=== PATIENT | female | born 1950 | race Hispanic/Latino ===

== ENCOUNTER 2017-03-07 12:05 | Inpatient (IN) | payer MEDICARE, OTHER ==
[2017-03-07 12:05] VITALS: BMI 31.7
--- NOTE | 2017-03-07 12:22 | ED PDOC ---
Arrival/HPI - General Chief Complaint: Shortness Of Breath Time Seen by Provider: 03/07/17 12:05 Historian: Patient - History of Present Illness Narrative History of Present Illness (Text): 03/07/17 12:20 Shruti Lee, a 67 year old female, whose past medical history includes hypertension, CHF, CAD, COPD and diabetes, presents to the emergency department complaining of worsening shortness of breath for the past few days. Patient also reports a dry cough that worsens when lying down or with exertion. Patient denies any fever, nausea, vomiting or any other complaints at this time. Time/Duration: < week Symptom Onset: Sudden Symptom Course: Unchanged Activities at Onset: Rest Modifying Factors (Text): none Context: Home Associated Symptoms (Text): cough Past Medical History - Provider Review Nursing Documentation Reviewed: Yes - Infectious Disease Hx of Infectious Diseases: None - Reproductive Menopause: Yes - Cardiac Hx Pacemaker: No - Pulmonary Hx Chronic Obstructive Pulmonary Disease (COPD): Yes - Neurological Hx Paralysis: No - HEENT Hx HEENT Disorder: Yes (deviated septum, nosebleeds) - Renal Hx Renal Disorder: Yes (missing right kidney as per pt) - Endocrine/Metabolic Hx Diabetes Mellitus Type 2: Yes - Hematological/Oncological Hx Blood Transfusions: No - Integumentary Other/Comment: right 2nd toe purple post fall today - Musculoskeletal/Rheumatological Hx Musculoskeletal Disorders: Yes (COMRESSION FX,) - Gastrointestinal Hx Gastrointestinal Disorders: No - Genitourinary/Gynecological Hx Genitourinary Disorders: No Hx Reproductive Disorders: No - Psychiatric Hx Psychophysiologic Disorder: No Hx Substance Use: No - Surgical History Hx Coronary Stent: Yes (03/04/16 x1) - Anesthesia Hx Anesthesia: Yes Hx Anesthesia Reactions: No Hx Malignant Hyperthermia: No Family/Social History - Physician Review Nursing Documentation Reviewed: Yes Family/Social History: No Known Family HX Smoking Status: Never Smoked Hx Alcohol Use: No Hx Substance Use: No Allergies/Home Meds Allergies/Adverse Reactions: Allergies No Known Allergies Allergy (Verified 03/07/17 12:11) Home Medications: Home Meds Medication Instructions Recorded Confirmed metFORMIN [glucOPHAGE] 500 mg PO BID 04/16/16 03/07/17 Metoprolol Tartrate [Lopressor] 25 mg PO BID 09/24/16 03/07/17 glyBURIDE [Micronase] 5 mg PO BID 09/24/16 03/07/17 Acarbose [Acarbose] 50 mg PO TID 11/09/16 03/07/17 Atorvastatin [Lipitor] 40 mg PO HS 11/09/16 03/07/17 Loperamide [Imodium] 2 mg PO PRN PRN 11/09/16 03/07/17 Omeprazole/Sodium Bicarbonate 20 mg PO DAILY 11/09/16 03/07/17 [Zegerid 20 mg-1100 mg] Repaglinide [Prandin] 2 mg PO DAILY 11/09/16 03/07/17 Furosemide 60 mg PO BID 02/08/17 03/07/17 Gabapentin [Neurontin] 100 mg PO HS 03/07/17 03/07/17 Ipratropium 0.02% [Atrovent] 1 vial INH TID 03/07/17 03/07/17 Review of Systems - Physician Review All systems were reviewed & negative as marked: Yes - Review of Systems Constitutional: absent: Fevers Respiratory: SOB, Cough Gastrointestinal: absent: Nausea, Vomiting Physical Exam Vital Signs Reviewed: Yes Vital Signs Temp Pulse Resp BP Pulse Ox 03/07/17 13:10 20 128/80 92 L 03/07/17 13:09 128/80 03/07/17 12:06 97.1 F L 92 H 20 163/73 H 94 L 03/07/17 12:05 97.1 F L 92 H 20 163/73 H 94 L Temperature: Afebrile Blood Pressure: Hypertensive Pulse: Regular Respiratory Rate: Normal Appearance: Positive for: Well-Appearing, Non-Toxic, Comfortable Pain Distress: None Mental Status: Positive for: Alert and Oriented X 3 - Systems Exam Head: Present: Atraumatic, Normocephalic Pupils: Present: PERRL Extroacular Muscles: Present: EOMI Conjunctiva: Present: Normal Mouth: Present: Moist Mucous Membranes Neck: Present: Normal Range of Motion Respiratory/Chest: Present: Rales (bilateral). No: Accessory Muscle Use Cardiovascular: Present: Regular Rate and Rhythm, Normal S1, S2. No: Murmurs Abdomen: Present: Normal Bowel Sounds. No: Tenderness, Distention, Peritoneal Signs Upper Extremity: Present: Normal Inspection. No: Cyanosis, Edema Lower Extremity: Present: Edema (2+ pitting edema ) Neurological: Present: GCS=15, CN II-XII Intact, Speech Normal Skin: Present: Warm, Dry, Normal Color. No: Rashes Psychiatric: Present: Alert, Oriented x 3, Normal Insight, Normal Concentration Medical Decision Making ED Course and Treatment: 03/07/17 12:23 Impression: 67 year old female with shortness of breath. Differential Diagnosis include but are not limited to: Plan: -- EKG -- Chest Xray -- Urinalysis -- Labs -- Reassess and disposition Prior Visits: Notes and results from previous visits were reviewed. Patient reported to the emergency department on 12/08/16 for evaluation of worsening shortness of breath. Progress Notes: EKG: Ordered, reviewed, and independently interpreted the EKG. Rate : 91 BPM Rhythm : NSR Interpretation : Nonspecific ST/T changes Comparison : No interval changes from 12/08/16 Chest Xray: Creator : Dhruv Valenzuela MD FINDINGS: LUNGS: Mild central pulmonary vascular congestive changes with dense opacification left lower lung field consistent with some combination of atelectasis/ infiltrate and moderately large effusion. There is mild right basilar atelectasis. Tiny right-sided effusion not excluded. PLEURA: No apparent pneumothorax. CARDIOVASCULAR: Heart size difficult to assess due to silhouetting. OSSEOUS STRUCTURES: No questionable mild subluxation right humeral head VISUALIZED UPPER ABDOMEN: Normal. OTHER FINDINGS: None. IMPRESSION: Mild central pulmonary vascular congestive changes with dense opacification left lower lung field consistent with some combination of atelectasis/ infiltrate and moderately large effusion. There is mild right basilar atelectasis. Tiny right-sided effusion not excluded. 03/07/17 13:[address] Back who agrees patient is ready and accepted for admission 03/07/17 13:58 pt needs iv diuresis, not improving outpt on lasix po. pt also with worsening pleural effusion, needs possible IR drainage. not candidate for outpt management. - Lab Interpretations Lab Results: 03/07/17 12:25 03/07/17 12:25 Lab Results 03/07/17 12:25: WBC 6.8, RBC 2.86 L, Hgb 8.2 L, Hct 25.3 L, MCV 88.5, MCH 28.7, MCHC 32.4, RDW 16.2 H, Plt Count 297, MPV 9.9, Gran % 67.0, Lymph % (Auto) 20.7 L, [place] % (Auto) 9.5 H, Eos % (Auto) 2.1, Baso % (Auto) 0.7, Gran # 4.52, Lymph # 1.4, [place] # 0.6, Eos # 0.1, Baso # 0.05, PT 11.5, INR 1.06, APTT 24.5, Sodium 135, Potassium 4.2, Chloride 99, Carbon Dioxide 24, Anion Gap 16, BUN 65 H, Creatinine 1.6 H, Est GFR ( Amer) 39, Est GFR (Non-Af Amer) 32, Random Glucose 212 H, Calcium 9.2, Magnesium 1.6 L, Total Bilirubin 0.6, AST 14 L, ALT 39, Alkaline Phosphatase 144 H, Lactate Dehydrogenase 513, Total Creatine Kinase 51, Troponin I 0.05, NT-Pro-B Natriuret Pep 47526 H, Total Protein 6.5, Albumin 3.6, Globulin 2.9, Albumin/Globulin Ratio 1.2 - RAD Interpretation Radiology Orders: 03/07/17 12:16 CHEST PORTABLE [RAD] Stat - EKG Interpretation Interpreted by ED Physician: Yes Type: 12 lead EKG - Medication Orders Current Medication Orders: Discontinued Medications Furosemide (Lasix) 40 mg IVP STAT STA Stop: 03/07/17 12:53 Last Admin: 03/07/17 13:09 Dose: 40 MG MAR Blood Pressure Document 03/07/17 13:09 SRE (Rec: 03/07/17 13:12 SRE [id number]) Blood Pressure Blood Pressure (100/60-150/90) 128/80 IVP Administration Document 03/07/17 13:09 SRE (Rec: 03/07/17 13:12 SRE [id number]) Charges for Administration # of IVP Administrations 1 - Scribe Statement The provider has reviewed the documentation as recorded by the Scribe Marianne Green All medical record entries made by the Scribe were at my direction and personally dictated by me. I have reviewed the chart and agree that the record accurately reflects my personal performance of the history, physical exam, medical decision making, and the department course for this patient. I have also personally directed, reviewed, and agree with the discharge instructions and disposition. Disposition/Present on Arrival - Present on Arrival Any Indicators Present on Arrival: No History of DVT/PE: No History of Uncontrolled Diabetes: Yes Urinary Catheter: No History of Decub. Ulcer: No History Surgical Site Infection Following: None - Disposition Have Diagnosis and Disposition been Completed?: Yes Diagnosis: Congestive heart failure (CHF), Pleural effusion Disposition: HOSPITALIZED Disposition Time: 13:58 Patient Problems: Current Active Problems Problem Status Diagnosed Congestive heart failure (CHF) Acute Pleural effusion Acute Upper GI bleed Acute Condition: FAIR
[2017-03-07 12:30] LABS: ADD MANUAL DIFF? NO
[2017-03-07 12:35] LABS: BASO # 0.05 K/mm3 (0.0-2.0); BASO % 0.7 % (0.0-3.0); EOS # 0.1 (0.0-0.7); EOS % 2.1 % (1.5-5.0); GRAN # 4.52 (1.4-6.5); HEMATOCRIT 25.3 % (36.0-48.0); LYMPH # 1.4 (1.2-3.4); LYMPH % 20.7 % (22.0-35.0); MEAN CELL VOLUME 88.5 fL (80.0-105.0); MEAN CORPUSCULAR HEMOGLOBIN 28.7 pg (25.0-35.0); MEAN CORPUSCULAR HGB CONC 32.4 g/dl (31.0-37.0); MEAN PLATELET VOLUME 9.9 fl (7.0-11.0); MONO # 0.6 (0.1-0.6); MONO % 9.5 % (1.0-6.0); PLATELET COUNT 297 10^3/uL (120.0-450.0); RED CELL DISTRIBUTION WIDTH 16.2 % (11.5-14.5); WHITE BLOOD COUNT 6.8 10^3/ul (4.5-11.0)
[2017-03-07 12:43] LABS: INR 1.06 (0.93-1.08); PARTIAL THROMBOPLASTIN TIME 24.5 Seconds (23.7-30.8)
[2017-03-07 12:45] LABS: ALB/GLOB RATIO 1.2 (1.1-1.8); BILIRUBIN,TOTAL 0.6 mg/dL (0.2-1.3); CALCIUM 9.2 mg/dL (8.4-10.5); MAGNESIUM 1.6 mg/dL (1.7-2.2); POTASSIUM 4.2 mmol/L (3.6-5.0); TOTAL PROTEIN 6.5 g/dL (5.8-8.3)
[2017-03-07 12:56] LABS: TROPONIN I 0.05 ng/mL
--- NOTE | 2017-03-07 13:15 | RAD ---
HISTORY: sob COMPARISON: Comparison chest 12/11/2016 FINDINGS: LUNGS: Mild central pulmonary vascular congestive changes with dense opacification left lower lung field consistent with some combination of atelectasis/ infiltrate and moderately large effusion. There is mild right basilar atelectasis. Tiny right-sided effusion not excluded. PLEURA: No apparent pneumothorax. CARDIOVASCULAR: Heart size difficult to assess due to silhouetting. OSSEOUS STRUCTURES: No questionable mild subluxation right humeral head VISUALIZED UPPER ABDOMEN: Normal. OTHER FINDINGS: None. IMPRESSION: Mild central pulmonary vascular congestive changes with dense opacification left lower lung field consistent with some combination of atelectasis/ infiltrate and moderately large effusion. There is mild right basilar atelectasis. Tiny right-sided effusion not excluded.
[2017-03-07 16:28] LABS: URINE BILIRUBIN NEGATIVE (NEGATIVE); URINE BLOOD SMALL (NEGATIVE); URINE GLUCOSE (UA) 250 mg/dL (NEGATIVE); URINE KETONE NEGATIVE (NEGATIVE); URINE LEUKOCYTE ESTERASE NEGATIVE Leu/uL (NEGATIVE); URINE PROTEIN >=300 mg/dL (<30 mg/dL); URINE UROBILINOGEN 0.2 E.U./dL (<1 E.U./dL)
[2017-03-07 16:29] LABS: URINE APPEARANCE CLEAR (CLEAR); URINE COLOR YELLOW (YELLOW)
[2017-03-07 16:37] LABS: URINE BACTERIA FEW (NEG); URINE WBC 0 - 2 /hpf (0-6)
[2017-03-07] MEDS: Insulin Lispro (HUMAlog) HIGH Coverage SC SCH ×2 (16:40→22:17)
[2017-03-07] MEDS: cefTRIAXone 1 gm 100 ML IVPB SCH (17:39)
--- NOTE | 2017-03-07 18:02 | CT ---
PROCEDURE: CT scan of the chest 03/07/2017. HISTORY: Shortness of breath COMPARISON: Comparison made with CT scan chest 09/26/2016 an chest x-ray obtained earlier same day TECHNIQUE: Contiguous axial images of the chest performed in standard fashion. . Oral contrast was administered. No IV contrast given. Coronal and Sagittal reformats generated. Radiation dose: Total exam DLP = 579.81 mGy-cm. This CT exam was performed using one or more of the following dose reduction techniques: Automated exposure control, adjustment of the mA and/or kV according to patient size, and/or use of iterative reconstruction technique. Findings: Heart is enlarged. Low-attenuation changes in the cardiac chamber as well as the thoracic aorta suggest on underlying anemia however clinical correlation recommended. Mild coronary artery calcifications are present. No significant pericardial effusion. Ascending thoracic aorta measures approximately 3.57 cm and descending thoracic aorta measures approximately 2.26 cm. Pulmonary trunk measures approximately 2.7 cm. There are a several of small nonspecific mediastinal lymph nodes. The trachea and mainstem bronchi are patent without obvious endoluminal lesions. Evaluation for hilar adenopathy is limited due to the lack of circulating intravenous contrast material. Moderate size left and small right-sided effusions are present. Mild left basilar atelectasis with atelectasis also noted in the lingular region. Minimal atelectasis right lung base and right middle lobe region. Minor multilevel degenerative spondylosis of the thoracic spine. Chronic appearing superior endplate deformity of the study. T5 and L1 segments former of which appears new since prior CT scan. Re- demonstrated is a coarse calcification within the hepatic parenchyma consistent with prior exposure to granulomatous disease process. Cholelithiasis again noted. . Impression: There are bilateral on effusions left larger than right. Bibasilar atelectasis left also greater than right with involvement of the lingular region.
--- NOTE | 2017-03-07 19:02 | HP ---
HISTORY OF PRESENT ILLNESS: The patient is a 67-year-old female known to me from multiple previous a dmissions, came to Emergency Room because of increasing shortness of breath she was having. It has b een going on for almost a week, but got worse today. Complaining of a nonproductive cough, increasin g shortness of breath on lying and also when she walks small distance. She did not have any nausea o r vomiting, did not have any fever or chills. No history of hemoptysis, no hematemesis. PAST MEDICAL HISTORY: Significant for: 1. Hypertension. 2. Multiple admissions for CHF exacerbation. 3. Coronary artery disease, status post angioplasty. 4. Hypertension. 5. Chronic obstructive pulmonary disease. 6. Non-insulin dependent diabetes. 7. History of chronic anemia, history of upper GI bleed in the past. ALLERGIES: She is not allergic to any medication. SOCIAL HISTORY: , lives with her . History of smoking in the remote past. MEDICATIONS AT HOME: She is on Atrovent 1 inhale daily, Neurontin 100 mg at bedtime, acarbose 50 mg 3 times a day, Plavix 75 daily, Lipitor 40 at dinner time, aspirin 81 daily, Lasix mg twice a d ay, Imodium 2 mg p.r.n., omeprazole, metoprolol 25 b.i.d., glyburide 5 mg twice a day, Prandin 2 mg d aily, Metformin 500 twice a day. REVIEW OF SYSTEMS: Significant for nonproductive cough, congestion, increasing shortness of breath o n minimal exertion. PHYSICAL EXAMINATION: GENERAL: She is in mild distress. VITAL SIGNS: She is afebrile, pulse 73, respirations 18, blood pressure 150/77. LUNGS: Bilateral expiratory rhonchi. Soft crackle at bases. HEART: S1, S2 audible. ABDOMEN: Soft, nontender, no rebound, no guarding. NEUROLOGIC: The patient is awake and alert, communicative. LABORATORY DATA: WBC 6.8, hemoglobin 8.5, hematocrit 25.3, platelet of 297. PT 11.5, INR 1.06, PTT 20.5. Chemistry: Sodium , potassium 4.2, chloride 99, CO2 of 24, BUN 65, creatinine 1.6, blood sugar of 212. Magnesium 1.6. LFTs are within normal limits. Alkaline phosphatase is 144. BNP is 25,100. X-ray chest shows mild central pulmonary congestive changes and a dense opacity in the left lower lung consistent with a combination of atelectasis or infiltrate, large effusion. There i s mild right basilar atelectasis and right-sided effusion. ASSESSMENT: 1. Chronic obstructive pulmonary disease exacerbation. 2. Pleural effusion. 3. Congestive heart failure exacerbation. 4. Bronchospasm. 5. Non-insulin dependent diabetes. 6. Hypertension. 7. Hyperlipidemia. 8. Chronic anemia. PLAN: The patient will be admitted on telemetry. Start her on nebulizer treatment, start her on asp irin. Give her Lasix 40 IV twice a day. Continue her on beta edy. Continue her on Plavix. Mon itor blood sugar. Monitor her electrolytes in the a.m. Rufina Back MD cc: [phone] TT: 03/07/2017 19:01:27 mn
[2017-03-07] MEDS: MethylPREDNISolone 40 mg Vial IV SCH (21:12)
[2017-03-07] MEDS: Ipratropium 0.02% Inhal Soln (0.5 mg/2.5 ml) UD IH SCH (21:40)
[2017-03-08] MEDS: Pantoprazole 40 mg EC Tab PO SCH (06:03)
[2017-03-08 06:36] LABS: ADD MANUAL DIFF? NO
[2017-03-08 06:54] LABS: BASO # 0.02 K/mm3 (0.0-2.0); BASO % 0.3 % (0.0-3.0); GRAN # 5.47 (1.4-6.5); GRAN % 88.3 % (50.0-68.0); HEMATOCRIT 26.5 % (36.0-48.0); LYMPH # 0.6 (1.2-3.4); LYMPH % 9.5 % (22.0-35.0); MEAN CELL VOLUME 87.7 fL (80.0-105.0); MEAN CORPUSCULAR HEMOGLOBIN 28.5 pg (25.0-35.0); MEAN CORPUSCULAR HGB CONC 32.5 g/dl (31.0-37.0); MEAN PLATELET VOLUME 9.6 fl (7.0-11.0); MONO # 0.1 (0.1-0.6); MONO % 1.9 % (1.0-6.0); PLATELET COUNT 291 10^3/uL (120.0-450.0); RED CELL DISTRIBUTION WIDTH 16.1 % (11.5-14.5); WHITE BLOOD COUNT 6.2 10^3/ul (4.5-11.0)
[2017-03-08 06:57] LABS: ALB/GLOB RATIO 1.2 (1.1-1.8); BILIRUBIN,TOTAL 0.6 mg/dL (0.2-1.3); CALCIUM 9.1 mg/dL (8.4-10.5); MAGNESIUM 1.6 mg/dL (1.7-2.2); PHOSPHOROUS 5.2 mg/dL (2.5-4.5); TOTAL PROTEIN 6.8 g/dL (5.8-8.3)
[2017-03-08 07:07] LABS: FREE T4 1.86 ng/dL (0.78-2.19)
[2017-03-08 07:21] LABS: THYROID STIMULATING HORMONE 1.94 mIU/mL (0.46-4.68)
[2017-03-08] MEDS: Ipratropium 0.02% Inhal Soln (0.5 mg/2.5 ml) UD IH SCH ×3 (07:35→20:45)
[2017-03-08] MEDS: Insulin Lispro (HUMAlog) HIGH Coverage SC SCH ×4 (08:31→22:24)
[2017-03-08] MEDS: MethylPREDNISolone 40 mg Vial IV SCH ×2 (09:11→22:37)
[2017-03-08] MEDS: cefTRIAXone 1 gm 100 ML IVPB SCH (09:12)
--- NOTE | 2017-03-08 09:33 | CARD ---
APPROVED REPORT EKG Measurement Heart [id number] <Conclusion> Normal sinus rhythm IVCD STTW changes c/w ischemia No change
--- NOTE | 2017-03-08 09:37 | CON ---
DATE: 03/07/2017 INDICATIONS: Shortness of breath, pleural effusion. HISTORY OF PRESENT ILLNESS: This is a 67-year-old diabetic woman who is known to us from prior admissions, admitted with several days of increasing shortness of breath and cough. She came to the Emergency Room, was found to have bilateral pleural effusions, left greater than right. She was admitted to telemetry. This morning, she feels better, but still some dyspnea with exertion and intermittent cough. There is no chest pain, orthopnea, PND, syncope, presyncope, lightheadedness, dizziness, vertigo, palpitations, edema, claudication, fever, chills, sputum production, hemoptysis, abdominal pain, nausea, vomiting, diarrhea, constipation, or melena. PAST MEDICAL HISTORY: Complex. She has chronic dyspnea with pleural effusions , congestive heart failure, COPD, coronary artery disease with remote coronary intervention, and moderately severe LV dysfunction. She has hypertension and diabetes, moderate to severe mitral regurgitation on her last echocardiogram. She has neuropathy, a history of GI bleeding and anemia, GERD, but no history of myocardial infarction, angina, stroke, TIA, or gout. MEDICATIONS: At the time of admission included acarbose, Atrovent, aspirin, Lasix, loperamide, Lipitor, Lopressor, Micronase, Neurontin, Plavix, Prandin, Zegerid, metformin. ALLERGIES: There were no medication allergies reported. SOCIAL HISTORY: She lives at home. She is ambulatory. She is a remote smoker. She does not drink alcohol significantly. FAMILY HISTORY: Noncontributory. REVIEW OF SYSTEMS: A 10-point review of systems is unremarkable except as noted above. PHYSICAL EXAMINATION: GENERAL: She is a well-developed woman in no acute distress, sitting on her bed in telemetry. VITAL SIGNS: Notable for sinus rhythm at 82 beats per minute. She is afebrile. Blood pressure 154/90, respirations 18, O2 sat 98% on nasal cannula. HEENT: Reveals no neck-vein distention, thyromegaly, or carotid bruits. Mucous membranes are moist. Conjunctivae are pink. NECK: Supple. LUNGS: Lung renteria - scattered rhonchi, diminished breath sounds, especially at the left base. HEART: Revealed normal first and second heart sounds. There is a systolic murmur at the left sternal border and apex. ABDOMEN: Soft, bowel sounds are present. No mass, organomegaly, tenderness, rebound, guarding, CVA tenderness, or palpable abdominal aortic aneurysm. EXTREMITIES: Revealed no cyanosis or clubbing. There is mild lower extremity edema. NEUROLOGIC: Awake, alert, and oriented. PSYCHIATRIC: Normal as to mood and affect. SKIN: Warm and dry. No rash or cellulitis. LABORATORY AND IMAGING: A chest x-ray reveals mild central pulmonary vascular congestion, dense opacification of left lower lung consistent with combination of atelectasis, infiltrate, and effusion. Tiny right-sided effusion not excluded. EKG demonstrates regular sinus rhythm, leftward axis, poor R-wave progression, nonspecific ST wave changes. No change compared to a prior EKG. A CT scan of the chest revealed bilateral pleural effusions - left greater than right, bibasilar atelectasis - left greater than right, with involvement of the lingular region. White count normal, hemoglobin 8.6, hematocrit 26.2, platelet count 291,000. PT , INR, PTT normal. Electrolytes normal. BUN 65, creatinine 1.6, repeat 1.5, blood sugars in the 200-range. Magnesium 1.6, mild abnormality LFTs noted. CK 51. Troponins negative x 2. TSH and free T4 are unremarkable. Urinalysis is noted. IMPRESSION: The patient is a 67-year-old woman with coronary artery disease and LV dysfunction, history of coronary intervention, who presents with dyspnea , cough, and is found to have a large left greater than right pleural effusion and worsening dyspnea with cough. Additionally, there is a history of hypertension, diabetes, mitral regurgitation, and anemia. At this time, I agree with the plan. She is on telemetry. She is getting IV Lasix. She will have a pulmonary consultation. She should be considered for thoracentesis, which has been done in the past. I will review her old records. We should monitor I's and O's, stool for occult blood, and blood sugars. She is getting diabetic medications. She is getting Rocephin. She is getting pulmonary medications and Solu-Medrol. She feels better this morning. She can be out of bed. We will continue aspirin and Plavix. She is getting gabapentin , Protonix, metformin, Lipitor, Micronase, Prandin. I will follow along with you. I will make additional recommendations based on her clinical course. Sancho Lucas MD cc: [id number] TT: 03/08/2017 09:36:35 Confirmation # [id number] Dictation # [id number]
--- NOTE | 2017-03-08 13:36 | PN ---
DATE: 03/08/2017 The patient is a 67-year-old, seen and examined, lying in bed, seems to be comfortable. She states h er cough, congestion, shortness of breath have improved significantly. PHYSICAL EXAMINATION: VITAL SIGNS: She is afebrile, pulse 82, respirations 18, blood pressure 154/90. LUNGS: Bilateral fair airflow, no rhonchi or crackle. HEART: S1, S2 audible. ABDOMEN: Soft, nontender, no rebound, obese, no hepatosplenomegaly. NEUROLOGIC: She is awake and alert, communicative. LABORATORY EXAMINATION: WBCs 6.2, hemoglobin 8.6, hematocrit 26.5, platelet of 291. PT 11.5, INR 1. 06. Chemistry: Sodium 135, potassium 5.0, chloride 99, CO2 25, BUN 68, creatinine 1.5, blood sugar of 254, magnesium is 1.6. CT scan of the chest was done yesterday that shows bilateral pleural effusion, left larger than the r ight, bibasilar atelectasis, left also greater than the right with involvement of lingular region. ASSESSMENT: 1. Chronic obstructive pulmonary disease exacerbation. 2. Bilateral pleural effusion. 3. Acute on chronic systolic and acute on chronic left ventricular dysfunction. 4. Coronary artery disease. 5. Chronic anemia. PLAN: Spoke to Dr. Warner Yeung. She is scheduled to have a thoracentesis done today. We need to lo ok at her recent echo. It was done in 09/2016. It shows dilated left atrium, mild concentric left v entricular hypertrophy and mildly reduced left ventricular systolic function. We will monitor her bl ood sugar. Continue her on glyburide, metoprolol and statin. She is also on Prandin. We will carlin nue her on IV antibiotics. She is getting nebulizer treatment. I will request for sequential compre ssion devices for deep venous thrombosis prophylaxis and reevaluate patient in a.m. Request for CBC, CMP, and electrolytes in a.m. Rufina Back MD cc: [phone] TT: 03/08/2017 13:18:46 Confirmation # [id number] Dictation # [id number] en 03/08/2017 12:36:02
[2017-03-08] MEDS: Magnesium Oxide 400 mg Tab UD PO SCH (17:05)
--- NOTE | 2017-03-08 18:11 | US ---
PROCEDURE: Ultrasound guided left thoracentesis. CLINICAL HISTORY: Recurrent congestive heart failure. Shortness of breath. Under to large left pleural effusion. PHYSICIAN(S): Warner Yenug MD. TECHNIQUE: The relative risks and indications of the procedure were explained to the patient and consent obtained. The patient was placed in a sitting position on the stretcher and sonography of the right chest performed. This revealed a moderate sized leftpleural effusion. A left posterolateral intercostal approach was selected and the area prepped and draped usual sterile fashion. 1% Xylocaine was used to anesthetize the skin and soft tissues. A 7 Tamazight thoracentesis catheter was trocared into the right pleural cavity and 100ccof clear straw-colored fluid aspirated. No labs were sent IMPRESSION: 1. Ultrasound guided left thoracentesis. 1100cc of clear, straw-colored fluid were aspirated.
[2017-03-09] MEDS: Pantoprazole 40 mg EC Tab PO SCH (06:09)
[2017-03-09 07:25] LABS: ADD MANUAL DIFF? NO
[2017-03-09 07:29] LABS: GRAN # 6.31 (1.4-6.5); GRAN % 86.4 % (50.0-68.0); HEMATOCRIT 24.1 % (36.0-48.0); LYMPH # 0.6 (1.2-3.4); LYMPH % 8.8 % (22.0-35.0); MEAN CORPUSCULAR HEMOGLOBIN 28.5 pg (25.0-35.0); MEAN CORPUSCULAR HGB CONC 32.8 g/dl (31.0-37.0); MEAN PLATELET VOLUME 9.6 fl (7.0-11.0); MONO # 0.4 (0.1-0.6); MONO % 4.8 % (1.0-6.0); PLATELET COUNT 256 10^3/uL (120.0-450.0); WHITE BLOOD COUNT 7.3 10^3/ul (4.5-11.0)
[2017-03-09 07:55] LABS: CALCIUM 8.4 mg/dL (8.4-10.5); POTASSIUM 4.5 mmol/L (3.6-5.0)
[2017-03-09] MEDS: Ipratropium 0.02% Inhal Soln (0.5 mg/2.5 ml) UD IH SCH ×3 (08:15→19:28)
--- NOTE | 2017-03-09 08:32 | CP.PCM.PN ---
Subjective - Date & Time of Evaluation Date of Evaluation: 03/09/17 Time of Evaluation: 08:00 - Subjective Subjective: Stable on 2R s/p thoracentesis woth removal of 1100 ccs yesterday. She feels better with less dyspnea. V/S noted. RSR PE: Lungs: decreased BS at bases Cor.: S1S2, sys murmur Abd.: soft Ext.; no edema Neuro.: alert Thora. neg 1100 cc. Labs noted: H/H 7.9/24.1, na+= 129, Cr.= 1.8, BS = 424 Objective - Vital Signs/Intake and Output Vital Signs (last 24 hours): Temp Pulse Resp BP Pulse Ox 98.4 F 90 19 130/65 91 L 03/09/17 06:00 03/09/17 06:00 03/09/17 06:00 03/09/17 06:00 03/09/17 06:00 Intake and Output: 03/09/17 03/09/17 06:59 18:59 Intake Total 120 Balance 120 - Medications Medications: Current Medications Aspirin (Ecotrin) 81 mg PO DAILY [facility] Last Admin: 03/08/17 09:11 Dose: 81 mg Atorvastatin Calcium (Lipitor) 40 mg PO HS [facility] Last Admin: 03/08/17 22:37 Dose: 40 mg Clopidogrel Bisulfate (Plavix) 75 mg PO DAILY [facility] Last Admin: 03/08/17 09:11 Dose: 75 mg Furosemide (Lasix) 40 mg IVP DAILY [facility] Gabapentin (Neurontin) 100 mg PO HS [facility] PRN Reason: Protocol Last Admin: 03/08/17 22:37 Dose: 100 mg Glyburide (Micronase) 5 mg PO BID [facility] Last Admin: 03/08/17 17:09 Dose: 5 mg Ceftriaxone Sodium (Rocephin 1 Gram Ivpb) 100 mls @ 100 mls/hr IVPB DAILY [facility] PRN Reason: Protocol Last Admin: 03/08/17 09:12 Dose: 100 mls/hr Insulin Human Lispro (Humalog High) 0 units SC ACHS [facility] PRN Reason: Protocol Last Admin: 03/08/17 22:24 Dose: 2 units Ipratropium [place] (Atrovent) 0.5 mg IH TIDRESP [facility] Last Admin: 03/09/17 08:15 Dose: 0.5 mg Loperamide HCl (Imodium) 2 mg PO QID PRN PRN Reason: Diarrhea Magnesium Oxide (Mag-Ox) 400 mg PO BID [facility] Last Admin: 03/08/17 17:05 Dose: 400 mg Metformin HCl (Glucophage) 500 mg PO BID [facility] Last Admin: 03/08/17 17:05 Dose: 500 mg Methylprednisolone (Solu-Medrol) 40 mg IV Q12 [facility] Last Admin: 03/08/17 22:37 Dose: 40 mg Metoprolol Tartrate (Lopressor) 25 mg PO BID [facility] Last Admin: 03/08/17 17:05 Dose: 25 mg Pantoprazole Sodium (Protonix Ec Tab) 40 mg PO 0630 [facility] Last Admin: 03/09/17 06:09 Dose: 40 mg Repaglinide (Prandin) 2 mg PO DAILY [facility] Last Admin: 03/08/17 09:11 Dose: 2 mg - Labs Labs: 03/09/17 07:10 03/09/17 07:10 PT 11.5 Seconds (9.9-11.8) 03/07/17 12:25 INR 1.06 (0.93-1.08) 03/07/17 12:25 APTT 24.5 Seconds (23.7-30.8) 03/07/17 12:25 Assessment and Plan - Assessment and Plan (Free Text) Plan: Assessment: Dyspnea/Cough Recurrent Pleural Effusions s/p left thoracentesis 03/08/17 COPD CAD/Remoted PCI/LVD Mod/Sev. MR on echo 10/07 HBP Diabetes Anemia GIB Former Smoker Plan: Await Pl. fluid analysis Check F/U CXR Reduce IV Lasix to daily Adj. diabetes meds Evaluate anemia: possible transfusion to hgb > 9.5 Check stool for OB Monitor: labs, H/H, I/O, Pl. Fluid, sats., etc.
[2017-03-09] MEDS: Insulin Lispro (HUMAlog) HIGH Coverage SC SCH ×4 (08:38→21:58)
--- NOTE | 2017-03-09 09:14 | RAD ---
HISTORY: CHF. left thoracentesis COMPARISON: 03/07/2017 TECHNIQUE: Chest PA and lateral FINDINGS: LUNGS: No active pulmonary disease. PLEURA: There is a decrease in the size of the left pleural effusion. CARDIOVASCULAR: Mild cardiomegaly OSSEOUS STRUCTURES: No significant abnormalities. VISUALIZED UPPER ABDOMEN: Normal. OTHER FINDINGS: None. IMPRESSION: Decreased size of left pleural effusion
[2017-03-09] MEDS: cefTRIAXone 1 gm 100 ML IVPB SCH (09:55)
[2017-03-09] MEDS: MethylPREDNISolone 40 mg Vial IV SCH ×3 (09:55→21:52)
[2017-03-09] MEDS: Magnesium Oxide 400 mg Tab UD PO SCH ×2 (09:56→17:56)
--- NOTE | 2017-03-09 12:48 | PN ---
DATE: 03/09/2017 SUBJECTIVE: The patient is a 67-year-old, seen and examined. Doing much better. Less shortness of breath. No cough or congestion. Able to lie relatively flat now. VITAL SIGNS: She is afebrile, pulse 86, respirations 20, blood pressure 145/76. LUNGS: Bilateral fair airflow, no rhonchi or crackle. HEART: S1, S2 audible. ABDOMEN: Soft, nontender, no rebound, no guarding. NEUROLOGIC: She is awake and alert, able to communicate. EXTREMITIES: Bilateral legs, +1 edema. LABORATORY EXAM: WBC 7.3, hemoglobin 7.9, hematocrit 24, platelet of 256. Chemistry: Sodium 129, p otassium 4.____, chloride 95, CO2 24, BUN 85, creatinine 1.8, blood sugar of 493. ASSESSMENT: 1. Bilateral pleural effusion, right more than left, status post thoracentesis. 2. Noninsulin-dependent diabetes. 3. Chronic obstructive pulmonary disease. 4. Hypertension. 5. Acute on chronic renal insufficiency. 6. Status post electrolyte imbalance. PLAN: I will cut down her Lasix. She was on 60 q. 12 and has been changed to 40 q. daily. Will tra nsfuse her 1 blood transfusion. Will continue her on current antibiotic regimen. I will cut down he r steroids to 30 q. 12. Follow up CBC and CMP in the a.m. Rufina Back MD cc: [phone] TT: 03/09/2017 12:48:00 Confirmation # [id number] Dictation # [id number] [place]
[2017-03-09 15:21] VITALS: RESP 20
[2017-03-09 17:45] VITALS: TEMP 97.9
--- NOTE | 2017-03-10 01:42 | CP.PCM.PN ---
Subjective - Date & Time of Evaluation Date of Evaluation: 03/10/17 Time of Evaluation: 01:39 - Subjective Subjective: S:Patient was seen at bedside. She is requesting a sleeping pill. States that she takes Ambien 5 at home sometimes for sleep. Has no other complaints now. Pertinent medical record was reviewed. O: Last Vital Signs 3 Temp 97.9 F 03/09/17 17:45 Pulse 86 03/09/17 17:56 Resp 20 03/09/17 17:45 BP 160/87 H 03/09/17 17:56 Pulse Ox 96 03/09/17 16:00 Awake, alert, not in distress. LUNGS:Normal breathing pattern. NEURO:Speech normal. A:Adjustment insomnia. P:Ambien 5 mg PO x 1. Objective - Vital Signs/Intake and Output Vital Signs (last 24 hours): Temp Pulse Resp BP Pulse Ox 97.9 F 86 20 160/87 H 96 03/09/17 17:45 03/09/17 17:56 03/09/17 17:45 03/09/17 17:56 03/09/17 16:00 Intake and Output: 03/09/17 03/10/17 18:59 06:59 Intake Total 325 420 Balance 325 420 - Medications Medications: Current Medications Acetaminophen (Tylenol 325mg Tab) 650 mg PO Q6H PRN PRN Reason: Headache Last Admin: 03/09/17 18:29 Dose: 650 mg Aspirin (Ecotrin) 81 mg PO DAILY [facility] Last Admin: 03/09/17 09:56 Dose: 81 mg Atorvastatin Calcium (Lipitor) 40 mg PO HS [facility] Last Admin: 03/09/17 21:52 Dose: 40 mg Clopidogrel Bisulfate (Plavix) 75 mg PO DAILY [facility] Last Admin: 03/09/17 09:56 Dose: 75 mg Furosemide (Lasix) 40 mg IVP DAILY [facility] Last Admin: 03/09/17 09:55 Dose: 40 mg Gabapentin (Neurontin) 100 mg PO HS [facility] PRN Reason: Protocol Last Admin: 03/09/17 21:52 Dose: 100 mg Glyburide (Micronase) 10 mg PO BID [facility] Last Admin: 03/09/17 17:55 Dose: 10 mg Ceftriaxone Sodium (Rocephin 1 Gram Ivpb) 100 mls @ 100 mls/hr IVPB DAILY [facility] PRN Reason: Protocol Last Admin: 03/09/17 09:55 Dose: 100 mls/hr Insulin Human Lispro (Humalog High) 0 units SC ACHS [facility] PRN Reason: Protocol Last Admin: 03/09/17 21:58 Dose: 2 units Ipratropium [place] (Atrovent) 0.5 mg IH TIDRESP [facility] Last Admin: 03/09/17 19:28 Dose: 0.5 mg Loperamide HCl (Imodium) 2 mg PO QID PRN PRN Reason: Diarrhea Magnesium Oxide (Mag-Ox) 400 mg PO BID [facility] Last Admin: 03/09/17 17:56 Dose: 400 mg Metformin HCl (Glucophage) 500 mg PO BID [facility] Last Admin: 03/09/17 17:56 Dose: 500 mg Methylprednisolone (Solu-Medrol) 30 mg IV Q12 [facility] Last Admin: 03/09/17 21:52 Dose: 30 mg Metoprolol Tartrate (Lopressor) 25 mg PO BID [facility] Last Admin: 03/09/17 17:56 Dose: 25 mg Pantoprazole Sodium (Protonix Ec Tab) 40 mg PO 0630 [facility] Last Admin: 03/09/17 06:09 Dose: 40 mg Repaglinide (Prandin) 2 mg PO DAILY [facility] Last Admin: 03/09/17 09:56 Dose: 2 mg - Labs Labs: 03/09/17 07:10 03/09/17 07:10 PT 11.5 Seconds (9.9-11.8) 03/07/17 12:25 INR 1.06 (0.93-1.08) 03/07/17 12:25 APTT 24.5 Seconds (23.7-30.8) 03/07/17 12:25
[2017-03-10] MEDS ORDERED: Insulin Lispro 1 UNITS/0.01 ML SC STA (01:57)
[2017-03-10] MEDS: Pantoprazole 40 mg EC Tab PO SCH (05:56)
[2017-03-10 07:30] LABS: ADD MANUAL DIFF? NO
[2017-03-10 07:38] LABS: EOS % 0.1 % (1.5-5.0); GRAN # 7.84 (1.4-6.5); HEMATOCRIT 27.6 % (36.0-48.0); LYMPH # 0.8 (1.2-3.4); MEAN CELL VOLUME 86.5 fL (80.0-105.0); MEAN CORPUSCULAR HEMOGLOBIN 28.8 pg (25.0-35.0); MEAN CORPUSCULAR HGB CONC 33.3 g/dl (31.0-37.0); MEAN PLATELET VOLUME 9.7 fl (7.0-11.0); MONO # 0.7 (0.1-0.6); MONO % 7.9 % (1.0-6.0); PLATELET COUNT 260 10^3/uL (120.0-450.0); RED CELL DISTRIBUTION WIDTH 15.7 % (11.5-14.5); WHITE BLOOD COUNT 9.3 10^3/ul (4.5-11.0)
[2017-03-10] MEDS: Ipratropium 0.02% Inhal Soln (0.5 mg/2.5 ml) UD IH SCH ×2 (07:53→13:26)
[2017-03-10] MEDS: Insulin Lispro (HUMAlog) HIGH Coverage SC SCH ×2 (08:23→12:01)
[2017-03-10 09:09] LABS: CALCIUM 8.5 mg/dL (8.4-10.5); POTASSIUM 4.6 mmol/L (3.6-5.0)
[2017-03-10 09:21] VITALS: O2SAT 92
[2017-03-10] MEDS: MethylPREDNISolone 40 mg Vial IV SCH (10:40)
[2017-03-10] MEDS: cefTRIAXone 1 gm 100 ML IVPB SCH (10:41)
[2017-03-10 10:45] VITALS: BP 144/71; PULSE 92
[2017-03-10] MEDS: Magnesium Oxide 400 mg Tab UD PO SCH (10:47)
--- NOTE | 2017-03-10 14:18 | DS ---
The patient is a 67-year-old, seen and examined, doing well, sitting in chair, eating and tolerating. Complained of bilateral leg weakness and swelling. PHYSICAL EXAMINATION: GENERAL: She is feeling much better. VITAL SIGNS: She is afebrile, pulse 93, respirations 20, blood pressure 144/71. LUNGS: Bilateral fair airflow, no rhonchi or crackle. HEART: S1, S2 audible. ABDOMEN: Soft, nontender, no rebound, no guarding. NEUROLOGIC: The patient is awake and alert, communicative, ambulatory. EXTREMITIES: Bilateral leg +1 edema. LABORATORY EXAM: WBC is 9.3, hemoglobin 9.2, hematocrit 37.6, platelets of 260. Chemistry: Sodium 131, potassium 4.6, chloride 97, CO2 of 24, BUN 87, creatinine 1.9, blood sugar . ASSESSMENT: 1. Bilateral pleural effusion, right more than the left, status post thoracentesis and 1100 mL fluid was removed. 2. Noninsulin dependent diabetes. 3. Chronic obstructive pulmonary disease. 4. Acute on chronic anemia, status post 1 blood transfusion. 5. Hypertension. 6. Renal insufficiency. 7. Electrolyte imbalance. 8. Deconditioning and difficulty walking. PLAN: The patient is being discharged today. She will be transferred to TCU where she will receive physical therapy. Her electrolytes will be monitored. Currently, she is on Lasix 40 daily. We will continue that. She is receiving Rocephin. We will her prednisone. She is not actively wheez ing, cut down to prednisone 20 daily so we can control her blood sugar better. Rufina Back MD cc: [phone] TT: 03/10/2017 14:18:07 [email or web address]
--- NOTE | 2017-03-10 15:22 | PN ---
DATE: 03/10/2017 DATE OF SERVICE: 03/10/2017. SUBJECTIVE: The patient is seen sitting in bed on 3R. She is comfortable at the present time. Foll owing a thoracentesis her dyspnea is improved. CURRENT MEDICATIONS: Include Atrovent, Ecotrin, Glucophage, Lasix 40 mg daily, Lipitor, metoprolol 2 5 mg daily, Micronase 10 mg b.i.d., Neurontin, Plavix 75 mg daily, Prandin 2 mg daily, prednisone 20 mg daily, Protonix, Rocephin. OBJECTIVE: GENERAL: She is a middle-aged woman who appears comfortable at rest. VITAL SIGNS: Her blood pressure is 144/70 with pulse of 76, respirations are 16. She is afebrile. HEENT: No JVD. CHEST: A few scattered rhonchi noted. HEART: PMI displaced laterally with a systolic murmur at the apex. ABDOMEN: Soft, nontender, normoactive bowel sounds. EXTREMITIES: Revealed 2+ leg edema. DIAGNOSTIC DATA: Potassium 4.6, BUN and creatinine are 87 and 1.9 with a sodium of 131, hemoglobin a nd hematocrit 9.2 and 27.6, white count 9.3, platelet count 260,000. Glucose is 338. IMPRESSION: 1. Decompensated congestive heart failure, acute on chronic, with recurrent pleural effusion status post thoracentesis. 2. Mitral regurgitation. 3. Coronary artery disease status remote percutaneous coronary intervention. 4. Diabetes. 5. Severe anemia, status post transfusion. 6. History of tobacco abuse. RECOMMENDATIONS: Her current medications should be continued for now. Continued diuresis is advised . Sodium restriction should continue. Eventual repeat catheterization to address residual coronary disease will be planned. If she has recurrent heart failure symptoms, consideration may need to be g iven to an intervention on her mitral valve disease. We will continue to follow. We will make [facility] recommendations as appropriate. Bipin Ellis MD cc: [phone] TT: 03/10/2017 13:31:12 Confirmation # [id number] Dictation # [id number] sn
== END 2017-03-10 13:56 | DRG 190 ==
LOC: ED 12:05 → ERH 13:51 → 2RSO 15:25 → 3RNO 03-09 17:16
PROVIDERS: ADMIT Internal Medicine Nephrology; ATTEND Internal Medicine Nephrology
PROC: 0W9B3ZZ Drainage of Left Pleural Cavity, Percutaneous Approach (ICD-10-PCS; principal; 2017-03-08 11:00)
PROC: 30233N1 Transfusion of Nonautologous Red Blood Cells into Peripheral Vein, Percutaneous Approach (ICD-10-PCS; 2017-03-09)
DX: J44.1 Chronic obstructive pulmonary disease with (acute) exacerbation (principal); I50.23 Acute on chronic systolic (congestive) heart failure; J90 Pleural effusion, not elsewhere classified; E11.22 Type 2 diabetes mellitus with diabetic chronic kidney disease; E87.8 Other disorders of electrolyte and fluid balance, not elsewhere classified; I13.0 Hypertensive heart and chronic kidney disease with heart failure and stage 1 through stage 4 chronic kidney disease, or unspecified chronic kidney disease; N18.9 Chronic kidney disease, unspecified; E78.5 Hyperlipidemia, unspecified; D64.9 Anemia, unspecified; K21.9 Gastro-esophageal reflux disease without esophagitis; I25.10 Atherosclerotic heart disease of native coronary artery without angina pectoris; I34.0 Nonrheumatic mitral (valve) insufficiency; F51.02 Adjustment insomnia; R26.2 Difficulty in walking, not elsewhere classified; Z79.84 Long term (current) use of oral hypoglycemic drugs; Z87.891 Personal history of nicotine dependence; Z95.5 Presence of coronary angioplasty implant and graft

== ENCOUNTER 2017-03-10 14:02 | Inpatient (IN) | payer OTHER ==
[2017-03-10 16:30] VITALS: BMI 33.6
[2017-03-10] MEDS ORDERED: LOPERAMIDE 2 MG PO PRN (16:30)
[2017-03-10] MEDS ORDERED: Pneumococcal 23-Valent Vaccine IM ONE (16:42)
[2017-03-10] MEDS: Magnesium Oxide 400 mg Tab UD PO SCH (18:00)
[2017-03-10] MEDS: MethylPREDNISolone 40 mg Vial IVP SCH (18:01)
[2017-03-10] MEDS: Ipratropium 0.02% Inhal Soln (0.5 mg/2.5 ml) UD IH SCH (19:59)
[2017-03-10] MEDS: Insulin Lispro (HUMAlog) HIGH Coverage SC SCH (22:12)
[2017-03-11] MEDS ORDERED: Insulin Lispro (HUMAlog) HIGH Coverage SC STA (03:02)
--- NOTE | 2017-03-11 03:30 | CP.PCM.PN ---
Subjective - Date & Time of Evaluation Date of Evaluation: 03/11/17 Time of Evaluation: 03:26 - Subjective Subjective: S:Behzad calls and tells that patient's finger stick blood glucose was 428 mg % .She was given 4 units of insulin. Repeat blood glucose is 444 mg %.She is asymptomatic. Patient was seen at bedside. She is sitting up in bed and playing some game on her IPAD. States that she can not sleep. States that she did not eat any extra food all day yesterday. Has been on solumedrol. Pertinent medical record was reviewed. Denies blurry vision, tingling, numbness. O: Last Vital Signs 3 Temp 98.1 F 03/11/17 06:00 Pulse 91 H 03/11/17 06:00 Resp 20 03/11/17 06:00 BP 149/84 03/11/17 06:00 Pulse Ox 98 03/11/17 06:00 Awake, alert, not in distress. LUNGS:Normal breathing pattern. A:Hyperglycemia. P:Regular insulin 4 Units SC stat. Repeat Finger Stick Blood Glucose at 6:00 AM. Objective - Vital Signs/Intake and Output Vital Signs (last 24 hours): Temp Pulse Resp BP Pulse Ox 98 F 80 18 137/73 97 03/10/17 16:27 03/10/17 17:59 03/10/17 16:27 03/10/17 17:59 03/10/17 16:21 - Medications Medications: Current Medications Acetaminophen (Tylenol 325mg Tab) 650 mg PO Q6H PRN; Protocol PRN Reason: Fever >100.4 F Aspirin (Ecotrin) 81 mg PO 0800 [facility] PRN Reason: Protocol Atorvastatin Calcium (Lipitor) 40 mg PO HS [facility] PRN Reason: Protocol Last Admin: 03/10/17 21:49 Dose: 40 mg Clopidogrel Bisulfate (Plavix) 75 mg PO DAILY [facility] PRN Reason: Protocol Furosemide (Lasix) 40 mg IVP 0600 [facility] PRN Reason: Protocol Gabapentin (Neurontin) 100 mg PO HS [facility] PRN Reason: Protocol Last Admin: 03/10/17 21:49 Dose: 100 mg Glyburide (Micronase) 5 mg PO 0800,1800 [facility] PRN Reason: Protocol Last Admin: 03/10/17 18:00 Dose: 5 mg Ceftriaxone Sodium (Rocephin 1 Gram Ivpb) 100 mls @ 100 mls/hr IVPB 0600 [facility] PRN Reason: Protocol Insulin Human Lispro (Humalog High) 0 units SC ACHS [facility] PRN Reason: Protocol Last Admin: 03/10/17 22:12 Dose: 4 units Ipratropium [place] (Atrovent) 0.5 mg IH TID [facility] PRN Reason: Protocol Last Admin: 03/10/17 19:59 Dose: 0.5 mg Loperamide HCl (Imodium) 2 mg PO PRN PRN; Protocol PRN Reason: Diarrhea Magnesium Oxide (Mag-Ox) 400 mg PO BID [facility] PRN Reason: Protocol Last Admin: 03/10/17 18:00 Dose: 400 mg Metformin HCl (Glucophage) 500 mg PO 0800,1800 [facility] PRN Reason: Protocol Last Admin: 03/10/17 17:58 Dose: 500 mg Methylprednisolone (Solu-Medrol) 30 mg IVP 0600,1800 [facility] PRN Reason: Protocol Last Admin: 03/10/17 18:01 Dose: 30 mg Metoprolol Tartrate (Lopressor) 25 mg PO 0800,1800 [facility] PRN Reason: Protocol Last Admin: 03/10/17 17:59 Dose: 25 mg Pantoprazole Sodium (Protonix Ec Tab) 40 mg PO 0630 [facility] PRN Reason: Protocol Repaglinide (Prandin) 2 mg PO 0800 [facility] PRN Reason: Protocol
[2017-03-11] MEDS: MethylPREDNISolone 40 mg Vial IVP SCH ×2 (05:17→18:15)
[2017-03-11] MEDS: cefTRIAXone 1 gm 100 ML IVPB SCH (05:17)
[2017-03-11] MEDS: Pantoprazole 40 mg EC Tab PO SCH (05:30)
[2017-03-11] MEDS: Insulin Lispro (HUMAlog) HIGH Coverage SC SCH ×4 (06:45→21:49)
[2017-03-11] MEDS: Ipratropium 0.02% Inhal Soln (0.5 mg/2.5 ml) UD IH SCH ×3 (07:07→20:13)
[2017-03-11] MEDS ORDERED: metOLazone 5 MG TAB PO ONE (09:18)
--- NOTE | 2017-03-11 09:50 | PN ---
DATE: 03/11/2017 SUBJECTIVE: The patient has no complaints of any chest pain, no shortness of breath, no headaches. She says she does get short of breath with exertion. PHYSICAL EXAMINATION: VITAL SIGNS: Temperature is 98.1, pulse of 91, blood pressure 149/84, respirations 20. GENERAL: The patient comfortable, in no acute distress. HEENT: Anicteric sclerae. Moist mucosa. NECK: No JVD or adenopathy. CARDIAC: S1/S2. No murmurs. No rubs. Regular. RESPIRATORY: Clear to auscultation bilaterally. No wheezes, rales, or rhonchi. Good air entry. ABDOMEN: Bowel sounds are positive, soft, nontender, and nondistended. EXTREMITIES: No edema. Has 1+ pulses. ASSESSMENT: 1. Acute congestive heart failure secondary to systolic dysfunction. 2. Bilateral pleural effusion, right more than left, status post 1100 mL fluid removal. 3. Diabetes, type 2. 4. Chronic obstructive pulmonary disease. 5. Acute anemia secondary to blood loss, status post transfusion of 1 unit with chronic anemia. 6. Hypertension. 7. Hypomagnesemia. 8. Iron deficiency anemia. 9. Chronic kidney disease III with acute kidney injury. PLAN: The patient is on aspirin. She is going to continue on Lasix daily. She is on Lipitor for dy slipidemia. She is on glyburide. She is receiving Prandin. She has no cultures. I will continue t he patient's Plavix. She is on Prandin. She is on metformin for her diabetes. With her acute kidne y injury, I will hold off on her metformin. She has been warned about the risks of taking oral hypog lycemics with her advanced kidney disease but she does not wish to go to an insulin. Isra Willett MD cc: [phone] TT: 03/11/2017 09:48:58 Confirmation # [id number] Dictation # [id number] mn
[2017-03-11] MEDS: Magnesium Oxide 400 mg Tab UD PO SCH ×2 (11:08→18:14)
[2017-03-12] MEDS: MethylPREDNISolone 40 mg Vial IVP SCH (05:18)
[2017-03-12] MEDS: cefTRIAXone 1 gm 100 ML IVPB SCH (05:18)
[2017-03-12] MEDS: Pantoprazole 40 mg EC Tab PO SCH (06:27)
[2017-03-12 06:36] LABS: HEMATOCRIT 31.7 % (36.0-48.0); MEAN CELL VOLUME 85.9 fL (80.0-105.0); MEAN CORPUSCULAR HEMOGLOBIN 28.7 pg (25.0-35.0); MEAN CORPUSCULAR HGB CONC 33.4 g/dl (31.0-37.0); MEAN PLATELET VOLUME 10.4 fl (7.0-11.0); RED CELL DISTRIBUTION WIDTH 15.2 % (11.5-14.5); WHITE BLOOD COUNT 10.8 10^3/ul (4.5-11.0)
[2017-03-12 06:55] LABS: ALB/GLOB RATIO 1.3 (1.1-1.8); BILIRUBIN,TOTAL 0.4 mg/dL (0.2-1.3); CALCIUM 9.1 mg/dL (8.4-10.5); POTASSIUM 4.7 mmol/L (3.6-5.0); TOTAL PROTEIN 6.9 g/dL (5.8-8.3)
[2017-03-12] MEDS: Insulin Lispro (HUMAlog) HIGH Coverage SC SCH ×4 (06:55→22:30)
[2017-03-12] MEDS: Ipratropium 0.02% Inhal Soln (0.5 mg/2.5 ml) UD IH SCH ×3 (07:15→20:19)
[2017-03-12] MEDS: Magnesium Oxide 400 mg Tab UD PO SCH ×2 (10:37→18:27)
[2017-03-12] MEDS ORDERED: Insulin Detemir 100 units/ml Vial (Levemir) SC SCH (22:00)
[2017-03-13] MEDS: Pantoprazole 40 mg EC Tab PO SCH (05:54)
[2017-03-13] MEDS: Insulin Lispro (HUMAlog) HIGH Coverage SC SCH ×4 (06:49→22:04)
[2017-03-13] MEDS: Ipratropium 0.02% Inhal Soln (0.5 mg/2.5 ml) UD IH SCH ×5 (07:11→20:45)
[2017-03-13] MEDS: Magnesium Oxide 400 mg Tab UD PO SCH ×2 (09:02→17:34)
[2017-03-13] MEDS: Insulin Detemir 100 units/ml Vial (Levemir) SC SCH (22:04)
[2017-03-14] MEDS: Pantoprazole 40 mg EC Tab PO SCH (05:32)
[2017-03-14] MEDS: Insulin Lispro (HUMAlog) HIGH Coverage SC SCH ×4 (06:41→22:09)
[2017-03-14] MEDS: Ipratropium 0.02% Inhal Soln (0.5 mg/2.5 ml) UD IH SCH ×4 (07:22→22:13)
[2017-03-14] MEDS: Magnesium Oxide 400 mg Tab UD PO SCH ×2 (10:24→17:27)
[2017-03-14] MEDS: Insulin Detemir 100 units/ml Vial (Levemir) SC SCH (22:08)
--- NOTE | 2017-03-15 00:22 | CP.PCM.PN ---
Subjective - Date & Time of Evaluation Date of Evaluation: 03/13/17 Time of Evaluation: 11:00 - Subjective Subjective: Breathing improved. Blood sugars elevated more than 400. ambulating without difficulty. Objective - Vital Signs/Intake and Output Vital Signs (last 24 hours): Temp Pulse Resp BP Pulse Ox 97.4 F L 80 21 168/86 H 98 03/14/17 16:00 03/14/17 17:27 03/14/17 16:00 03/14/17 17:27 03/14/17 16:00 - Medications Medications: Current Medications Acetaminophen (Tylenol 325mg Tab) 650 mg PO Q6H PRN; Protocol PRN Reason: Fever >100.4 F Last Admin: 03/14/17 05:34 Dose: 650 mg Aspirin (Ecotrin) 81 mg PO 0800 [facility] PRN Reason: Protocol Last Admin: 03/14/17 08:24 Dose: 81 mg Atorvastatin [place]cium (Lipitor) 40 mg PO HS [facility] PRN Reason: Protocol Last Admin: 03/14/17 22:07 Dose: 40 mg Clopidogrel Bisulfate (Plavix) 75 mg PO DAILY [facility] PRN Reason: Protocol Last Admin: 03/14/17 10:23 Dose: 75 mg Furosemide (Lasix) 40 mg PO BID [facility] Last Admin: 03/14/17 17:26 Dose: 40 mg Gabapentin (Neurontin) 100 mg PO HS [facility] PRN Reason: Protocol Last Admin: 03/14/17 22:07 Dose: 100 mg Glyburide (Micronase) 5 mg PO 0800,1800 [facility] PRN Reason: Protocol Last Admin: 03/14/17 17:28 Dose: 5 mg Insulin Detemir (Levemir) 12 unit SC HS [facility] Last Admin: 03/14/17 22:08 Dose: 12 unit Insulin Human Lispro (Humalog High) 0 units SC ACHS [facility] PRN Reason: Protocol Last Admin: 03/14/17 22:09 Dose: 4 units Ipratropium [place] (Atrovent) 0.5 mg IH TID [facility] PRN Reason: Protocol Last Admin: 03/14/17 22:13 Dose: 0.5 mg Loperamide HCl (Imodium) 2 mg PO PRN PRN; Protocol PRN Reason: Diarrhea Magnesium Oxide (Mag-Ox) 400 mg PO BID [facility] PRN Reason: Protocol Last Admin: 04/23/17 17:27 Dose: 400 mg Metoprolol Tartrate (Lopressor) 25 mg PO 0800,1800 [facility] PRN Reason: Protocol Last Admin: 03/14/17 17:27 Dose: 25 mg Pantoprazole Sodium (Protonix Ec Tab) 40 mg PO 0630 [facility] PRN Reason: Protocol Last Admin: 03/14/17 05:32 Dose: 40 mg Prednisone (Prednisone Tab) 20 mg PO 0800 [facility] PRN Reason: Protocol Last Admin: 03/14/17 08:26 Dose: 20 mg Repaglinide (Prandin) 4 mg PO 0800 [facility] PRN Reason: Protocol Last Admin: 03/14/17 08:25 Dose: 4 mg Zolpidem Tartrate (Ambien) 5 mg PO HS [facility]N PRN Reason: Insomnia Last Admin: 03/14/17 22:07 Dose: 5 mg - Labs Labs: 03/12/17 06:00 03/12/17 06:00 - Constitutional Appears: Non-toxic - Head Exam Head Exam: ATRAUMATIC, NORMAL INSPECTION, NORMOCEPHALIC - Eye Exam Eye Exam: Normal appearance Pupil Exam: NORMAL ACCOMODATION - ENT Exam ENT Exam: Mucous Membranes Moist - Neck Exam Neck Exam: Normal Inspection - Respiratory Exam Respiratory Exam: Clear to Ausculation Bilateral, NORMAL BREATHING PATTERN - Cardiovascular Exam Cardiovascular Exam: REGULAR RHYTHM, +S1, +S2 - GI/Abdominal Exam GI & Abdominal Exam: Soft, Normal Bowel Sounds - Extremities Exam Extremities Exam: Full ROM, Normal Capillary Refill, Normal Inspection - Neurological Exam Neurological Exam: Alert, CN II-XII Intact, Normal Gait, Oriented x3 - Psychiatric Exam Psychiatric exam: Normal Affect, Normal Mood - Skin Skin Exam: Normal Color, Warm Assessment and Plan (1) Anemia Assessment & Plan: anemia , multifactorial- iron deficiency, CKD III., chronic disease. s/p PRBC transfusion. She will need continuation of IV iron upon discharge. discussed with patient and daughter. Status: Chronic (2) Compression fracture Assessment & Plan: old, no issues Status: Chronic (3) Congestive heart failure (CHF) Assessment & Plan: improved. continue current meds. Status: Acute (4) Dyspnea Assessment & Plan: improved. sugars uncontrolled. wean steroids. decrease prednisone to 20 mg daily. continue nebs. Status: Acute (5) Pleural effusion Assessment & Plan: stable. Status: Chronic (6) Uncontrolled diabetes mellitus Assessment & Plan: decrease steroids to 20 mg daily. increase levemir to 12 mg QHS. continue sliding scale insulin. Status: Acute
--- NOTE | 2017-03-15 00:26 | CP.PCM.PN ---
Subjective - Date & Time of Evaluation Date of Evaluation: 03/14/17 Time of Evaluation: 13:00 - Subjective Subjective: Feeling better. sugars still uncontrolled. Breathing improved. No chest pain. Objective - Vital Signs/Intake and Output Vital Signs (last 24 hours): Temp Pulse Resp BP Pulse Ox 97.4 F L 80 21 168/86 H 98 03/14/17 16:00 03/14/17 17:27 03/14/17 16:00 03/14/17 17:27 03/14/17 16:00 - Medications Medications: Current Medications Acetaminophen (Tylenol 325mg Tab) 650 mg PO Q6H PRN; Protocol PRN Reason: Fever >100.4 F Last Admin: 03/14/17 05:34 Dose: 650 mg Aspirin (Ecotrin) 81 mg PO 0800 [facility] PRN Reason: Protocol Last Admin: 03/14/17 08:24 Dose: 81 mg Atorvastatin Calcium (Lipitor) 40 mg PO HS [facility] PRN Reason: Protocol Last Admin: 03/14/17 22:07 Dose: 40 mg Clopidogrel Bisulfate (Plavix) 75 mg PO DAILY [facility] PRN Reason: Protocol Last Admin: 03/14/17 10:23 Dose: 75 mg Furosemide (Lasix) 40 mg PO BID [facility] Last Admin: 03/14/17 17:26 Dose: 40 mg Gabapentin (Neurontin) 100 mg PO HS [facility] PRN Reason: Protocol Last Admin: 03/14/17 22:07 Dose: 100 mg Glyburide (Micronase) 5 mg PO 0800,1800 [facility] PRN Reason: Protocol Last Admin: 03/14/17 17:28 Dose: 5 mg Insulin Detemir (Levemir) 12 unit SC HS [facility] Last Admin: 03/14/17 22:08 Dose: 12 unit Insulin Human Lispro (Humalog High) 0 units SC ACHS [facility] PRN Reason: Protocol Last Admin: 03/14/17 22:09 Dose: 4 units Ipratropium [place] (Atrovent) 0.5 mg IH TID [facility] PRN Reason: Protocol Last Admin: 03/14/17 22:13 Dose: 0.5 mg Loperamide HCl (Imodium) 2 mg PO PRN PRN; Protocol PRN Reason: Diarrhea Magnesium Oxide (Mag-Ox) 400 mg PO BID [facility] PRN Reason: Protocol Last Admin: 03/14/17 17:27 Dose: 400 mg Metoprolol Tartrate (Lopressor) 25 mg PO 0800,1800 [facility] PRN Reason: Protocol Last Admin: 03/14/17 17:27 Dose: 25 mg Pantoprazole Sodium (Protonix Ec Tab) 40 mg PO 0630 [facility] PRN Reason: Protocol Last Admin: 03/14/17 05:32 Dose: 40 mg Prednisone (Prednisone Tab) 20 mg PO 0800 [facility] PRN Reason: Protocol Last Admin: 03/14/17 08:26 Dose: 20 mg Repaglinide (Prandin) 4 mg PO 0800 [facility] PRN Reason: Protocol Last Admin: 03/14/17 08:25 Dose: 4 mg Zolpidem Tartrate (Ambien) 5 mg PO HS PRN PRN Reason: Insomnia Last Admin: 03/14/17 22:07 Dose: 5 mg - Labs Labs: 03/12/17 06:00 03/12/17 06:00 - Head Exam Head Exam: ATRAUMATIC, NORMAL INSPECTION, NORMOCEPHALIC - Eye Exam Eye Exam: Normal appearance Pupil Exam: NORMAL ACCOMODATION - ENT Exam ENT Exam: Mucous Membranes Moist - Neck Exam Neck Exam: Normal Inspection - Respiratory Exam Respiratory Exam: Clear to Ausculation Bilateral, NORMAL BREATHING PATTERN - GI/Abdominal Exam GI & Abdominal Exam: Normal Bowel Sounds - Extremities Exam Extremities Exam: Full ROM, Normal Inspection - Back Exam Back Exam: NORMAL INSPECTION - Neurological Exam Neurological Exam: Alert, CN II-XII Intact, Normal Gait, Oriented x3 - Psychiatric Exam Psychiatric exam: Normal Affect - Skin Skin Exam: Dry, Normal Color, Warm Assessment and Plan (1) Anemia Status: Chronic (2) Compression fracture Assessment & Plan: Hb/hct stable. iron deficiency. IV iron as out patient. Status: Chronic (3) Congestive heart failure (CHF) Assessment & Plan: improved. continue current meds. Status: Acute (4) Dyspnea Assessment & Plan: improved. Status: Acute (5) Pleural effusion Status: Chronic (6) Uncontrolled diabetes mellitus Assessment & Plan: wean steroids. increase levemir. Status: Acute
[2017-03-15] MEDS: Pantoprazole 40 mg EC Tab PO SCH (06:46)
[2017-03-15] MEDS: Insulin Lispro (HUMAlog) HIGH Coverage SC SCH ×4 (06:51→22:03)
[2017-03-15] MEDS: Ipratropium 0.02% Inhal Soln (0.5 mg/2.5 ml) UD IH SCH ×3 (07:16→21:23)
--- NOTE | 2017-03-15 07:21 | PN ---
DATE: 03/15/2017 SUBJECTIVE: The patient has no complaints of any chest pain, no shortness of breath, no headaches or dizziness. PHYSICAL EXAMINATION: VITAL SIGNS: Temperature is 97.4, pulse of 80, blood pressure 168/86, respirations 21. GENERAL: The patient comfortable, in no acute distress. HEENT: Anicteric sclerae. Moist mucosa. NECK: No JVD or adenopathy. CARDIAC: S1/S2. No murmurs. No rubs. Regular. RESPIRATORY: Clear to auscultation bilaterally. No wheezes, rales, or rhonchi. Good air entry. ABDOMEN: Bowel sounds are positive, soft, nontender, and nondistended. EXTREMITIES: No edema. Has 1+ pulses. LABS: White count of 10.8, hemoglobin 10.6. Creatinine is 1.4. ASSESSMENT: 1. Acute congestive heart failure secondary to systolic dysfunction, improving. 2. Bilateral pleural effusion, improved. 3. Diabetes, type 2. 4. Chronic obstructive pulmonary disease. 5. Chronic anemia. 6. Hypertension. 7. Hypomagnesemia. 8. Iron deficiency anemia. 9. Chronic kidney disease, stage III. PLAN: The patient is on aspirin. She is receiving insulin. She is on Lasix daily. The patient is on Lipitor for dyslipidemia. The patient is on mag oxide. She is on glyburide for diabetes. She is receiving Plavix. The patient is on Prandin for diabetes; this will be continued. She is on predni sone. Clinically, she is improving. Isra Willett MD cc: [id number] TT: 03/15/2017 07:20:08 Confirmation # [id number] Dictation # [id number] [email or web address]
[2017-03-15 08:00] LABS: HEMATOCRIT 33.7 % (36.0-48.0); MEAN CELL VOLUME 85.3 fL (80.0-105.0); MEAN CORPUSCULAR HEMOGLOBIN 28.1 pg (25.0-35.0); MEAN CORPUSCULAR HGB CONC 32.9 g/dl (31.0-37.0); MEAN PLATELET VOLUME 9.6 fl (7.0-11.0); RED CELL DISTRIBUTION WIDTH 14.6 % (11.5-14.5)
[2017-03-15 08:32] LABS: ALB/GLOB RATIO 1.2 (1.1-1.8); BILIRUBIN,TOTAL 0.4 mg/dL (0.2-1.3); CALCIUM 8.9 mg/dL (8.4-10.5); POTASSIUM 3.9 mmol/L (3.6-5.0); TOTAL PROTEIN 6.3 g/dL (5.8-8.3)
--- NOTE | 2017-03-15 09:23 | PN ---
DATE: 03/15/2017 ADDENDUM The patient is going to be getting educated about giving herself insulin shots. I did speak to the deven jones. Isra Willett MD cc: [id number] TT: 03/15/2017 09:22:36 Confirmation # [id number] Dictation # [id number]
[2017-03-15] MEDS: Magnesium Oxide 400 mg Tab UD PO SCH ×2 (10:09→17:42)
[2017-03-15 11:41] VITALS: RESP 18
[2017-03-15] MEDS: Insulin Detemir 100 units/ml Vial (Levemir) SC SCH (22:02)
[2017-03-16] MEDS: Ipratropium 0.02% Inhal Soln (0.5 mg/2.5 ml) UD IH SCH ×4 (07:58→18:37)
[2017-03-16] MEDS: Magnesium Oxide 400 mg Tab UD PO SCH ×2 (09:48→17:27)
[2017-03-16] MEDS: Insulin Lispro (HUMAlog) HIGH Coverage SC SCH ×3 (12:31→22:53)
[2017-03-16] MEDS: Insulin Detemir 100 units/ml Vial (Levemir) SC SCH (22:54)
[2017-03-17] MEDS: Pantoprazole 40 mg EC Tab PO SCH (05:30)
[2017-03-17] MEDS: Insulin Lispro (HUMAlog) HIGH Coverage SC SCH ×4 (06:53→22:27)
[2017-03-17] MEDS: Ipratropium 0.02% Inhal Soln (0.5 mg/2.5 ml) UD IH SCH ×3 (10:07→20:44)
[2017-03-17] MEDS: Magnesium Oxide 400 mg Tab UD PO SCH ×2 (10:23→17:52)
[2017-03-17] MEDS ORDERED: Insulin Detemir 100 units/ml Vial (Levemir) SC SCH (20:08)
--- NOTE | 2017-03-17 20:29 | PN ---
DATE: 03/17/2017 SUBJECTIVE: The patient has no complaints of any chest pain or shortness of breath, no headaches or dizziness. PHYSICAL EXAMINATION: VITAL SIGNS: Temperature is 98.2, pulse is 78, blood pressure 144/70, respirations 18. GENERAL: The patient comfortable, in no acute distress. HEENT: Anicteric sclerae. Moist mucosa. NECK: No JVD or adenopathy. CARDIAC: S1/S2. No murmurs. No rubs. Regular. RESPIRATORY: Clear to auscultation bilaterally. No wheezes, rales, or rhonchi. Good air entry. ABDOMEN: Bowel sounds are positive, soft, nontender, and nondistended. EXTREMITIES: No edema. Has 1+ pulses. LABORATORY: is 397. ASSESSMENT: 1. Diabetes type 2. 2. Acute congestive heart failure secondary to systolic dysfunction, improving. 3. Bilateral pleural effusion, improved. 4. Diabetes type 2. 5. Chronic obstructive pulmonary disease. 6. Chronic anemia. 7. Hypertension. 8. Hypomagnesemia, improved. 9. Chronic kidney disease, stage III. 10. Iron deficiency anemia. PLAN: The patient is currently comfortable. She is on Lasix. She is going to continue with Levemir 12 units at night. She is on her glyburide. She is receiving Plavix. She is on Prandin. The patie nt is on tramadol. I will increase her Levemir to 18 units. She does understand how to give herself insulin. Isra Willett MD cc: [id number] TT: 03/17/2017 20:29:32 Confirmation # [id number] Dictation # [id number] lani
[2017-03-18] MEDS: Pantoprazole 40 mg EC Tab PO SCH ×2 (05:32→07:51)
[2017-03-18] MEDS: Insulin Lispro (HUMAlog) HIGH Coverage SC SCH ×3 (06:48→11:34)
[2017-03-18] MEDS: Ipratropium 0.02% Inhal Soln (0.5 mg/2.5 ml) UD IH SCH ×2 (07:32→13:48)
[2017-03-18] MEDS: Magnesium Oxide 400 mg Tab UD PO SCH (09:36)
[2017-03-18 16:20] VITALS: BP 135/80; PULSE 76; TEMP 98.5; O2SAT 96
--- NOTE | 2017-03-18 18:30 | DS ---
DATE: 03/18/2017 SUBJECTIVE: This is a 67-year-old female who had come into the transitional care unit for rehab. Jennie subramanian is being taught on how to give herself insulin. She did have improvement. Her sugar did improve. She was able to understand how to give herself insulin. She was not able to afford the FlexPen, so she was given NPH. Her sugars had been running high because she had been on prednisone. This was co ntinued and weaned finally. She was discharged home to follow up as an outpatient with me. I did sp eak to Alana, the school vocational educator, regarding educating her about her insulin regimen. VITAL SIGNS: Temperature is 98.5, pulse of 76, blood pressure 135/80, respirations 18, O2 saturation 96%. DISCHARGE DIAGNOSES: 1. Diabetes type 2. 2. Acute congestive heart failure secondary to systolic dysfunction, improving. 3. Bilateral pleural effusion, improved. 4. Chronic obstructive pulmonary disease. 5. Chronic anemia. 6. Hypomagnesemia. 7. Chronic kidney disease, stage III. 8. Iron deficiency anemia. PLAN: The patient is currently comfortable. She is going to be on NPH. She is going to continue he r oral hypoglycemics, as well. She is going to be on her Prandin. She is on tramadol for pain. CONDITION: Stable. ACTIVITY: Increase as tolerated. Isra Willett MD cc: [id number] TT: 03/18/2017 18:29:59 Confirmation # [id number] Dictation # [id number] [email or web address]
== END 2017-03-18 17:08 | disposition home or self-care (01) | DRG 291 ==
LOC: TRCU 14:02
PROVIDERS: ADMIT Internal Medicine Nephrology; ATTEND Internal Medicine Nephrology
PROC: 3E0F7GC Introduction of Other Therapeutic Substance into Respiratory Tract, Via Natural or Artificial Opening (ICD-10-PCS; 2017-03-10)
PROC: F07Z9ZZ Gait Training/Functional Ambulation Treatment (ICD-10-PCS; principal; 2017-03-11)
PROC: F08Z4FZ Home Management Treatment using Assistive, Adaptive, Supportive or Protective Equipment (ICD-10-PCS; 2017-03-11)
DX: I13.0 Hypertensive heart and chronic kidney disease with heart failure and stage 1 through stage 4 chronic kidney disease, or unspecified chronic kidney disease (principal); I50.21 Acute systolic (congestive) heart failure; N17.9 Acute kidney failure, unspecified; E11.22 Type 2 diabetes mellitus with diabetic chronic kidney disease; D62 Acute posthemorrhagic anemia; E11.65 Type 2 diabetes mellitus with hyperglycemia; J44.9 Chronic obstructive pulmonary disease, unspecified; E83.42 Hypomagnesemia; N18.3 Chronic kidney disease, stage 3 (moderate); D50.9 Iron deficiency anemia, unspecified